=== PATIENT | male | born 1965 | race Caucasian/White ===

== ENCOUNTER → 2016-09-14 | Outpatient (CLI) | payer OTHER ==
[2016-09-14 09:24] LABS: Appearance,Urine Clear (Clear); Bilirubin,Urine Negative (Negative); Glucose,Urine (UA) Negative (Negative); Ketones,Urine Negative (Negative); Leukocyte Esterase,Urine Negative (Negative); Nitrite,Urine Negative (Negative); Protein,Urine Negative (Negative); Specific Gravity,Urine 1.005 (1.001-1.035); UA Billing (MACRO vs. MICRO) CHEM; Urobilinogen,Urine <2.0 mg/dL (<2.0)
[2016-09-14 09:32] LABS: Partial Thromboplastin Time 22.7 sec (22.0-30.0); Prothrombin Time 10.2 sec (9.0-12.0)
--- NOTE | 2016-09-14 12:33 | XR ---
EXAMINATION TYPE: XR chest 2V DATE OF EXAM: 09/14/2016 9:14 AM COMPARISON: Prior chest x-ray July 05, 2014. HISTORY: Presurgical study. TECHNIQUE: Frontal and lateral views of the chest are obtained. FINDINGS: There is no focal air space opacity, pleural effusion, or pneumothorax seen. The cardiac silhouette size is within normal limits. Anterior fusion plate lower cervical spine is redemonstrated . IMPRESSION: No acute cardiopulmonary process. No significant change from prior.
== END | disposition home or self-care (01) ==
LOC: LABPAT 08:34
PROVIDERS: ATTEND Orthopaedic Surgery Orthopaedic Surgery of the Spine
DX: Z01.818 Encounter for other preprocedural examination (principal); Z01.810 Encounter for preprocedural cardiovascular examination; Z01.812 Encounter for preprocedural laboratory examination
CPT/HCPCS: 71020; 81003; 85610; 85730; 93005

== ENCOUNTER 2016-09-24 12:31 | Inpatient (IN) | payer OTHER ==
[2016-09-17 11:51] VITALS: BMI 25.4
[~2016-09-24 12:31] MED LIST: BACITRACIN 50,000 UNIT, POLYMYXIN B 500,000 UNIT in SODIUM CHLORIDE 0.9% IRRIGATIO 1,00... IRRIGATION ONE; HYDROmorphone 1 MG/ML 1 ML SYRINGE IVP PRN; LIDOCAINE 1% 20 ML VIAL (10MG/ML) FOR IV START INTRADERMA PRN; ONDANSETRON 4 MG/2 ML VIAL IVP ONE; ceFAZolin 2 GM in SODIUM CHLORIDE 0.9% 100 ML IVPB ONE
[2016-09-24] MEDS: LACTATED RINGERS 1,000 ML IV SCH (13:27)
[2016-09-24] MEDS ORDERED: MIDAZOLAM 2 MG/2 ML VIAL IV ONE (13:53)
[2016-09-24] MEDS ORDERED: LIDOCAINE 1% INJ 10MG/ML (20 ML MDV) ONE (14:26)
[2016-09-24] MEDS ORDERED: HYDROmorphone (PF) 1 MG/ML ONE (14:26)
[2016-09-24] MEDS ORDERED: SUCCINYLCHOLINE CHLORIDE 100 MG/5 ML SYR IV ONE (14:26)
[2016-09-24] MEDS ORDERED: PROPOFOL 10 MG/ML 20 ML VIAL IV ONE (14:26)
[2016-09-24] MEDS ORDERED: MIDAZOLAM 2 MG/2 ML VIAL ONE (14:26)
[2016-09-24] MEDS ORDERED: fentaNYL (PF) 50 MCG/ML 2 ML AMP ONE (14:26)
[2016-09-24] MEDS ORDERED: DEXAMETHASONE SOD PHOS (MDV) 100 MG/10 ML VIAL ONE (14:26)
[2016-09-24] MEDS ORDERED: LIDOCAINE 0.5%-EPI 1:200,000 50 ML VIAL SQ ONE (14:56)
[2016-09-24] MEDS ORDERED: GELATIN SPONGE,ABSORB (LARGE) 1 EACH SPONGE TOPICAL ONE (15:05)
[2016-09-24] MEDS ORDERED: THROMBIN (BOVINE) 5,000 UNIT VIAL TOPICAL ONE (15:05)
[2016-09-24] MEDS ORDERED: LACTATED RINGERS 1,000 ML IV ONE (15:21)
--- NOTE | 2016-09-24 15:35 | XR ---
EXAMINATION TYPE: XR cervical spine 1V DATE OF EXAM: 09/24/2016 3:21 PM COMPARISON: NONE HISTORY: 51-year-old male needle placement TECHNIQUE: Single crosstable lateral intraoperative view FINDINGS: The patient is intubated. A needle projects along the anterior soft tissues to the anterior C3-C4 dis c interspace. There is underlying C4-C6 ACDF change. IMPRESSION: Needle at the anterior C3-C4 disc interspace.
[2016-09-24] MEDS ORDERED: BENZOCAINE/MENTHOL LOZENG 1 EACH LOZENGE MUCOUS MEM PRN (17:00)
[2016-09-24] MEDS ORDERED: ONDANSETRON 4 MG/2 ML VIAL IVP PRN (17:00)
[2016-09-24] MEDS ORDERED: DIAZEPAM 5 MG TAB PO PRN (17:00)
[2016-09-24] MEDS ORDERED: MAG HYDROX/AL HYDROX/SIMETH 30 ML CUP PO PRN (17:00)
[2016-09-24] MEDS ORDERED: HYDROmorphone 1 MG/ML 1 ML SYRINGE IVP PRN (17:00)
--- NOTE | 2016-09-24 17:00 | P.OP ---
Date of Procedure: 09/24/16 Preoperative Diagnosis: Cervical stenosis C3 4 and C6 7, adjacent level degeneration C3 4 C6 7, history of prior cervical decompression and fusion C4 5 C5 6, bilateral upper extremity radiculopathy, degenerative disc disease C3 4 C6 7, retained hardware C4 5 C5 6 Postoperative Diagnosis: Same Anesthesia: GETA Pathology: none sent Condition: stable Disposition: PACU Description of Procedure: BRIEF OPERATIVE NOTE Preoperative Diagnosis: Cervical stenosis C3 4 C6 7, adjacent level degeneration C3 4 C6 7, history of prior fusion C5 6 C6 7, retained hardware C5 6 7, degenerative disc disease C3 4 C6 7, herniated nucleus pulposis C3 4 C6 7, bilateral upper extremity radiculopathy Postoperative Diagnosis: Same Procedure: Removal of hardware, deep C 456 Exploration of fusion C4 5 C5 6 with findings of able fusion Anterior cervical decompression and fusion C3 4 C6 7 Placement of interbody graft C34 C6 7 Application of anterior cervical plate C3 4 5 6 and 7 Surgeon: Dr. Luevano Advertising Consultant: Neo Nayak is present throughout the entire the case persistence during positioning, dissection, exposure, visualization, and all crucial elements of the case as well as closure. Anesthesia: General anesthesia Estimated blood loss: Approximately 50 mL Complications: None apparent Components implanted: We removed and anterior cervical plate with screws at C4 5 and 6, we placed new hardware at C3 4 5 6 and 7 with a K2M [place] anterior cervical plate system with screws measuring 3.5 x 14 and Vikos allograft bone graft with 1 mL of DBX bone putty Disposition: To recovery room in good stable condition. OPERATIVE INDICATIONS The patient has had long-standing issues in their neck and upper extremities. Many years ago he underwent anterior cervical decompression and fusion at C4 5 C5 6 with different spine surgeon. He eventually went on to good recovery and had relative good results. Over the past couple of years he has had increasing pain in his neck and has been developing worsening degenerative changes above and below his cervical fusion. He is having significant cervical stenosis which correlated well with his upper extremity and neck symptoms at C3 4 and C6 7. The patient has been through conservative treatment. He is not having any benefit despite aggressive conservative treatment We discussed various treatment options including surgery, and the patient wishes to proceed with surgery We discussed the risk, patient's alternatives and benefits of surgery including but not limited to, risk of bleeding risk of infection, risk of need for further surgery, risk of decreased, loss of motion, muscle function, malunion nonunion, hardware failure, nerve damage, paralysis, heart attack, and . OPERATIVE SUMMARY After discussing all the risks, patient alternatives and benefits at length, the patient elected to proceed with surgical intervention, signed informed consent, and presented for their procedure. The patient was seen and examined in the preoperative holding area and the surgical site was marked. The patient was given antibiotics and brought to the operating room. The patient was positioned on the operating room table in a supine position being careful to pad any bony prominences and pressure points. The patient was sedated and intubated by anesthesia in standard fashion. Once the airway and C- spine were stabilized the patient's arms were padded and tucked at her side, with her shoulders gently taped. The head was placed in a donut pad with the neck in good neutral alignment and position. We were careful to maintain the patient's cervical spine and good neutral alignment and position throughout. The patient was prepped and draped in a normal standard fashion. An appropriate timeout and keystone protocol performed. We were able to proceed with the surgery. The local wound area was infiltrated with local anesthetic. An incision was made longitudinally approximately 5 cm over the appropriate levels on the right from C3 to C7. Dissection was taken down subcutaneously to the level of the platysma which was split in line with its fibers. Dissection was taken with a carotid approach, with the trachea and esophagus medial and the carotid sheath laterally. We dissected down to the anterior surface of the vertebral bodies. I was able to palpate the plate intact at C4 5 and 6 and expose the plate and screws as well as level above and below. Intraoperative x- ray was taken which showed a marker at the appropriate level at C3 4. I was able to expose the screw heads and I was able to backout each of the screws appropriately at C4 5 and 6. All the screws are examined found to be in total. The plate was elevated and removed in total. I explored the fusion which appeared to be intact with solid fusion between see for 5 and C5 6. The peek interbody cages were intact and stable at those levels. With the appropriate level positively confirmed, and the appropriate hardware removed with findings of stable fusion at C4 5 and 6, we were able to proceed with discectomy at the appropriate levels of C3 4 and C6 7. All of the operative levels were exposed appropriately. The patient had all their twitches back, and there was no evidence of recurrent laryngeal issue. The wound was copiously irrigated and suctioned dry as had been done periodically throughout the case. At the appropriate level/levels, starting at C3 4 and then doing C6 7 I established an annulotomy with an 11 blade scalpel. A discectomy was performed with a combination of pituitary rongeurs, curettes, a high-speed bur, and Kerrison rongeurs. The posterior longitudinal ligament was taken down as were any posterior osteophytes. There were large posterior osteophytes were found in able to be removed for the decompression. This gave good central and bilateral foraminal decompression. There is no evidence of any dural tear or leak. The endplates were prepared with a high-speed bur. With the endplates in good parallel position, I was able to size for the appropriate size interbody graft. The wound was irrigated and suctioned dry the graft was prepared and malleted into position. It had good alignment and position with the anterior surface flush with the anterior surface of the vertebral bodies. This was done similarly the appropriate levels first at 34 and then at C6 7. With the grafts intact, I was able to measure and contour and appropriate sized plate. The plate was positioned at the midline over the appropriate levels across all levels from 3 the C7. Screw holes were established with a hand drill and drill guide. Screws were placed in good alignment and position with excellent bony purchase. They were seated under the locking device. The construct was checked and found to be stable. Intraoperative x-ray was taken which showed good alignment and position of the implants at the appropriate levels from C3 to C7. There was no evidence of any dural tear or leak. Good hemostasis was maintained. The wound was copiously irrigated and suctioned dry as had been done periodically throughout the case. The platysma was closed with absorbable suture. The subcutaneous tissue was closed. The subcuticular tissue was closed with absorbable suture. The wound was cleaned and dried and dressed appropriately. A soft cervical collar was placed appropriately. The patient was woken up by anesthesia, extubated, transferred back gently to their hospital bed and brought to the recovery room in good stable condition. The patient will be admitted to the hospital for appropriate postoperative care , medical management and monitoring. We will continue to follow them closely about the postoperative course.
[2016-09-24] MEDS ORDERED: CYCLOBENZAPRINE 10 MG TAB PO PRN (17:01)
--- NOTE | 2016-09-24 17:36 | XR ---
EXAMINATION TYPE: XR cervical spine 1V DATE OF EXAM: 09/24/2016 4:45 PM COMPARISON: Today HISTORY: Spine surgery TECHNIQUE: Single view FINDINGS: There is a plate with screws fusing anteriorly the cervical spine from C3 to C7. Vertebra h ave normal alignment. Endotracheal tube is noted. IMPRESSION: There is revision of the multilevel fusion surgery. I see no complicating process.
[2016-09-24] MEDS: SODIUM CHLORIDE 0.9% 1,000 ML IV SCH (21:37)
[2016-09-24 23:09] VITALS: PULSE 90
[2016-09-24] MEDS: ceFAZolin 2 GM in SODIUM CHLORIDE 0.9% 100 ML IVPB SCH (23:30)
[2016-09-25] MEDS: HYDROmorphone 1 MG/ML 1 ML SYRINGE IVP PRN ×2 (00:34→06:09)
[2016-09-25] MEDS: LACTATED RINGERS 1,000 ML IV SCH (06:38)
[2016-09-25] MEDS: SODIUM CHLORIDE 0.9% 1,000 ML IV SCH (06:38)
[2016-09-25 08:11] VITALS: BP 135/82; RESP 18; TEMP 98.1
--- NOTE | 2016-09-25 08:39 | P.DS ---
Providers Date of admission: 09/24/16 12:31 Expected date of discharge: 09/25/16 Attending physician: Nina Luevano Primary care physician: Ness Santo - Discharge Diagnosis(es) (1) Degenerative disc disease, cervical Current Visit: Yes Status: Acute (2) Arthrodesis status Current Visit: Yes Status: Acute (3) History of cervical spinal arthrodesis Current Visit: Yes Status: Acute (4) Radiculopathy affecting upper extremity Current Visit: Yes Status: Acute Hospital Course: This is a pleasant 51-year-old male who presented with C3-4 and C6-7 adjacent level degenerative disc disease, upper extremity radiculopathy, retained hardware at C4-5 and C5-6, with history of previous anterior cervical decompression and fusion C4-5 and C5-6 who failed outpatient conservative therapy. He admitted for removal of hardware C4-5 and C5-6 with anterior cervical decompression and fusion C3-4 and C6-7. The patient tolerated the procedure well and did well postoperatively. His pain has been well- controlled. He is not currently experiencing any upper extremity radiculopathy symptoms bilaterally. He states he is not currently experiencing any headaches , which were present prior to surgery. He's been eating and voiding without significant difficulty. He has had no difficulty with swallowing following surgery. He is very happy with his progress early on postsurgically. He is ready for discharge. Condition on day of discharge stable. Patient will be discharged home. Patient was cleared preoperatively for surgery by Dr. Santo. Patient currently denies any nausea, vomiting, fever, or chills. Patient may shower Tegaderm dressing intact. Patient may remove Tegaderm dressing in 3 days and shower without a dressing at that time. Patient should keep Steri- Strips intact and allow them to fall off naturally. Patient should refrain from driving until at least after their first follow-up appointment in the office. Patient should avoid excessive neck flexion, extension, rotation, and lateral sidebending; no overhead lifting; no lifting greater than 10 pounds. Patient is given a prescription for Sumrall 5 mg/325 mg 1-2 tabs every 6 hours as needed for pain dispense 90 (Ninety). We discussed he should avoid anti- inflammatories over the next 6 weeks. We'll plan have him follow in the office in approximately 2-3 weeks for further evaluation. Physical Exam on day of discharge: Patient is awake, alert, and oriented 3 Vital signs stable Good chest excursion with deep inspiration and expiration Abdomen soft nontender No signs or symptoms of DVT; no calf pain Full range of motion of the cervical spine with adequate flexion, extension, and bilateral rotation Parish Nurse strength, thumb strength, interosseous strength, biceps strength, triceps strength, and shoulder strength positive sustained bilaterally Soft cervical collar intact Evidence of some dried blood with a dressing at the incision site; dressing is removed during physical examination; Nonstick Telfa and Tegaderm was re-applied over the incision site Steri-Strips remain intact over the incision site with some dried blood on the Steri-Strips Incision is dry, and intact; no erythema, purulence, or signs of infection No active drainage from the incision site No significant pain with palpation around the incision site Procedures: Removal of hardware C4-5 and C5-6 with anterior cervical decompression and fusion C3-4 and C6-7 Patient Condition at Discharge: Stable Plan - Discharge Summary New Discharge Prescriptions: Hydrocodone/Acetaminophen [Sumrall 5-325] 1 - 2 each PO Q6HR PRN #90 tab PRN Reason: Pain Discharge Medication List Doxycycline Hyclate [Vibramycin] 100 mg PO DAILY PRN 07/08/14 [History] Acetaminophen/Diphenhydramine [Tylenol PM 500-25mg] 1 tab PO HS PRN 09/17/16 [ History] Parmer 1 tab PO DAILY 09/17/16 [History] Cyclobenzaprine [Flexeril] 10 mg PO TID PRN 09/17/16 [History] DULoxetine HCL [Cymbalta] 20 mg PO DAILY 09/17/16 [History] HYDROcodone/APAP 5-325MG [Sumrall 5-325] 1 tab PO TID PRN 09/17/16 [History] Herbal Laxative 1 tab PO DAILY PRN 09/17/16 [History] L.acidoph,Paracasei, B.lactis [Probiotic] 1 each PO DAILY 09/17/16 [History] Multivitamins, Thera [Multivitamin (formulary)] 1 tab PO DAILY 09/17/16 [History ] Viagra (Unknown Dose) 1 tab PO DIRECTED 09/17/16 [History] Psyllium Husk 100% [Metamucil Packet] 6 gm PO DAILY 09/24/16 [History] Hydrocodone/Acetaminophen [Sumrall 5-325] 1 - 2 each PO Q6HR PRN #90 tab 09/25/16 [Rx] Follow up Appointment(s)/Referral(s): Neo Martínez, SHIREEN [PHYSICIAN PUG MACHINE OPERATOR] - 2 Weeks (Patient may follow-up with Neo Martínez PA-C or Dr. Carlyle Luevano at [facility] in 2-3 weeks following discharge. ) Activity/Diet/Wound Care/Special Instructions: 1. Patient may shower Tegaderm dressing intact. 2. Patient may remove Tegaderm dressing in 3 days and shower without a dressing at that time. 3. Patient should keep Steri-Strips intact and allow them to fall off naturally. 4. Patient should refrain from driving until at least after their first follow- up appointment in the office. 5. Patient should avoid excessive neck flexion, extension, rotation, and sidebending; avoid overhead lifting; no lifting greater than 10 pounds 6. May continue to use soft cervical collar for comfort and support as needed 7. Do not soak in tub Discharge Disposition: HOME SELF-CARE
[2016-09-25] MEDS: ceFAZolin 2 GM in SODIUM CHLORIDE 0.9% 100 ML IVPB SCH (08:48)
[2016-09-25] MEDS ORDERED: DULoxetine HCL 20 MG CAPSULE.DR PO SCH (09:00)
[2016-09-25] MEDS ORDERED: MULTIVITAMINS, THERA 1 EACH TAB PO SCH (12:00)
== END 2016-09-25 10:00 | disposition home or self-care (01) | DRG 473 ==
LOC: 2ORMAIN 12:31 → 5ONC 17:07
PROVIDERS: ADMIT Orthopaedic Surgery Orthopaedic Surgery of the Spine; ATTEND Orthopaedic Surgery Orthopaedic Surgery of the Spine
PROC: 0RT30ZZ Resection of Cervical Vertebral Disc, Open Approach (ICD-10-PCS; 2016-09-24)
PROC: 0RP10AZ Removal of Interbody Fusion Device from Cervical Vertebral Joint, Open Approach (ICD-10-PCS; 2016-09-24)
PROC: 0RG20Z0 (ICD-10-PCS; principal; 2016-09-24 14:40)
DX: M50.01 Cervical disc disorder with myelopathy, high cervical region (principal); F32.9 Major depressive disorder, single episode, unspecified; M48.02 Spinal stenosis, cervical region; M50.11 Cervical disc disorder with radiculopathy, high cervical region; M75.42 Impingement syndrome of left shoulder; M75.41 Impingement syndrome of right shoulder; M75.22 Bicipital tendinitis, left shoulder; M75.21 Bicipital tendinitis, right shoulder; Z98.1 Arthrodesis status; Z79.899 Other long term (current) drug therapy; Z88.8 Allergy status to other drugs, medicaments and biological substances; Z87.891 Personal history of nicotine dependence; Z82.49 Family history of ischemic heart disease and other diseases of the circulatory system
CPT/HCPCS: 72020; 86850; 86900; 86901

== ENCOUNTER → 2018-05-13 | Outpatient (CLI) | payer BC, MEDICARE | END | disposition home or self-care (01) | LOC: LABWHC1 09:41 | PROVIDERS: ATTEND Nurse Practitioner | DX: Z01.818 Encounter for other preprocedural examination (principal) | CPT/HCPCS: 36415; 93005 ==

== ENCOUNTER → 2019-06-30 | Outpatient (CLI) | payer MEDICARE ==
--- NOTE | 2019-06-30 07:43 | US ---
EXAMINATION TYPE: US abdomen complete DATE OF EXAM: 06/30/2019 COMPARISON: NONE CLINICAL HISTORY: R53.82 Chronic Fatigue, R10.9 Abdominal pain. Intermittent upper abdomen pain x cou ple years, gotten worse recently, nausea, fatigue. EXAM MEASUREMENTS: Liver Length: 16.9 cm Gallbladder Wall: 0.2 cm CBD: 0.5 cm Spleen: 10.2 cm Right Kidney: 11.0 x 5.3 x 5.2 cm Left Kidney: 11.7 x 5.9 x 5.5 cm Pancreas: visualized portions wnl, limited by overlying midline bowel gas Liver: wnl Gallbladder: wnl Evidence for sonographic Hairston's sign: no CBD: visualized portions wnl, limited by overlying bowel gas Spleen: wnl Right Kidney: wnl Left Kidney: wnl Upper IVC: wnl Abd Aorta: wnl The visualized liver is heterogeneous. The intrahepatic portion of the IVC and visualized abdominal aorta are within normal limits. There is no evidence of cholelithiasis. Common bile duct is unremar kable. The visualized portions of the pancreas are homogenous. The spleen is unremarkable. Kidneys are symmetric and free of hydronephrosis. No renal lesions are seen. IMPRESSION: No suspicious acute findings identified.
== END | disposition home or self-care (01) ==
LOC: RADUSWWP 06:55
PROVIDERS: ATTEND Family Medicine
DX: R10.9 Unspecified abdominal pain (principal); R53.82 Chronic fatigue, unspecified
CPT/HCPCS: 76700

== ENCOUNTER → 2020-05-23 | Outpatient (CLI) | payer MEDICARE | END | disposition home or self-care (01) | LOC: LABWHC1 09:39 | PROVIDERS: ATTEND Family Medicine | DX: Z20.828 Contact with and (suspected) exposure to other viral communicable diseases (principal) | CPT/HCPCS: U0003; C9803 ==

== ENCOUNTER → 2025-01-04 | Outpatient (CLI) | payer OTHER ==
[2025-01-04 07:52] VITALS: BP 137/89; PULSE 67; RESP 16
--- NOTE | 2025-01-04 13:13 | P.PAINPG ---
Objective - Vital Signs Vital signs: Vital Signs Temp Pulse 67 01/04/25 07:41 Resp 16 01/04/25 07:41 BP 137/89 01/04/25 07:41 Pulse Ox 97 01/04/25 07:41 FiO2 Intake & Output 01/03/25 01/04/25 01/04/25 18:59 06:59 18:59 Weight 106.594 kg PQRS Measure Charge Sheet Mode of Arrival: Ambulatory Comment: HISTORY OF PRESENT ILLNESS: A 59 yr old male w at side as a referral from the [facility] presents today w severe and chronic neck pain > 10 yrs secondary to failed ACDF C3-C7 for evaluation. Pt states pain level is provoked at 9 /10 in intensity, constant, localized in the cervical spine, predominantly axial, sharp in character w occasional shooting pain towards the base of skull and R shoulder. Pain is provoked by rotation, lifting. Pain is alleviated by physician guided home stretches daily since 2016, ice, medications, topical, repositioning and rest . Cervical disability score at 33. PMH: OA, Hyperlipidemia, Rosacea PSH: ACDF C3-C7 (2016), ACDF C-C7 (2010), Tonsillectomy, Adenoidectomy, Back Surgery, Orthopedic Surgery, Tonsillectomy, R Foot Surgery SH: Former tobacco user, Occ ETOH use, No illicit drug use FH: Fa- Prostate CA. Mo- CAD. Son x2- No Reported History. Daughter- No Reported History All: See list Medications include Celebrex REVIEW OF ORGAN SYSTEMS: CONSTITUTIONAL: No fevers or chills. No recent weight loss. NEUROLOGICAL: + numbness and tingling along the distal extremities. No seizure disorders or headaches. MUSCULOSKELETAL: + pain PSYCHIATRIC: Denies current depression or suicidal thoughts. Physical Examinations : Constitutional : Cooperative , not in acute distress . Neurologic : Cranial nerve II to XII intact. No focal neurological deficits. Psychiatric : alert & oriented x 3. Matching mood & appropriate affect. Judgment & insight intact. Musculoskeletal : Cervical Spine Motor strength in the deltoid and biceps: Normal right side. Normal Left side Motor strength biceps and the wrist extensors: Normal right side . Normal left side Motor strength in the triceps muscle: Normal right side. Normal left side Deep tendon reflexes: Normal at the biceps. Normal at Brachioradialis. Normal at triceps Lhermitte Sign (cervical flexion) positive Vertebral body tenderness to deep palpation over C6 Cervical facet loading test: positive bilaterally Spurling test: positive R C6-C7 Neck distraction test: positive bilaterally Swapna sign: positive bilaterally Shoulders Muscle bulk/ tone/ strength BL Resisted Internal Rotation positive R / positive L Resisted External Rotation positive R / positive L Empty Can Test positive R / positive L Drop Arm Test positive R / positive L Lumbar spine Motor strength lower extremities ,thigh and legs 5/5 Right side , 5/5 Left side Deep tendon reflexes : Normal Knee Jerk. Normal Ankle Jerk Vertebral body tenderness over Mckenzie Test positive Lumbar facet Loading Test: positive Right / positive Left Range of motion of the lumbar spine Flexion 30 degrees, extension 10 degrees Straight Leg Raise test: Left/ Right positive at degrees Drop foot reflex: positive R / positive L Iman test: positive right / positive left. Severe tenderness over the Sacroiliac joint on the Right / Left sides Gaenslen test: positive bilaterally Sacral spine : Severe tenderness over the Sacroiliac joint: right side / left side Range of motion: Flexion of the lumbar spine <60 degrees Range of motion: Extension of the lumbar spine <20 degrees Gaenslen's Test positive Iman test: positive right side / left side Thigh Thrust Test Sacral Thrust Test Hip Joint Antalgic walking gait positive Trendelenburg positive R / positive L Imaging: CT non contrast cervical spine from 11/16/24 reviewed Assessment/ Plan : failed ACDF C3-C7 Recommendation of JOEL C6-C7 #1. Risks, benefits of procedure discussed and patient verbalized understanding. Admits to anti- coagulant use or medical history of diabetes. Protocol for discontinuation/ continuation of medications yadira procedure discussed. Minimal anesthesia provided, if clinically indicated, consisting of Versed and Fentanyl. All questions answered. I have spent greater than 30 minutes on patient care today. Dr Alvarado was available by phone for the evaluation of this patient. The time was used to review the medical records including relevant urine studies and Prescription history (MAPs), review of the available imaging, evaluation and examination of the patient, coordination of care with the medical staff and if applicable referring physicians, as well as creation of the medical record - Pain Location Right Neck Non-Pharmacological Interventions: Exercise, Home Exercise, Ice, Massage, Physical Therapy, Stretching Pharmacological Interventions: Scheduled Medication, Topical Medication PQRS Narrative: Smoking Status Former smoker Blood Pressure 137/89 Pain Intensity [Right Neck] 10 Scale Used Numeric (1 - 10) Hx Alcohol Use (MH) Yes Home Medications: Ambulatory Orders Celecoxib [CeleBREX] 200 mg PO DAILY 01/04/25 Levothyroxine Sodium [Levoxyl] 100 mcg PO DAILY 01/04/25 Rosuvastatin [Crestor] 1 DAILY 01/04/25 Controlled Substance Measures - Controlled Substance Measures Is patient prescribed a controlled substance at discharge?: No
== END | disposition home or self-care (01) ==
LOC: PNWHC3 07:29
PROVIDERS: ATTEND Specialist
DX: M54.12 Radiculopathy, cervical region (principal); Z87.891 Personal history of nicotine dependence; Z88.8 Allergy status to other drugs, medicaments and biological substances; Z98.890 Other specified postprocedural states
CPT/HCPCS: 99202